=== PATIENT | male | born 1980 | race American Indian/Alaskan Native ===

== ENCOUNTER 2017-02-10 12:23 | Emergency (ER) | payer OTHER ==
[2017-02-10 12:57] LABS: Basophils % (Auto) 0.5 % (0.0-1.8); Eosinophils % (Auto) 2.1 % (0.0-4.3); Hematocrit 53.3 % (35.5-45.6); Hemoglobin 17.9 gm/dl (11.8-15.2); Mean Corpuscular HGB Conc 34 % (32-34); Mean Corpuscular Hemoglobin 31 pg (28-32); Mean Corpuscular Volume 93 fl (84-94); Platelet Count 170 K/mm3 (140-440); Red Blood Count 5.71 M/mm3 (3.65-5.03); Red Cell Distribution Width 13.8 % (13.2-15.2); White Blood Count 10.1 K/mm3 (4.5-11.0)
[2017-02-10 13:13] LABS: Bilirubin,Urine NEG (Negative); Blood,Urine MOD (Negative); Ketones,Urine NEG (Negative); Leukocyte Esterase,Urine NEG (Negative); Nitrite,Urine NEG (Negative); Protein,Urine <15 mg/dL mg/dL (Negative); Urobilinogen,Urine < 2.0 mg/dL (<2.0)
[2017-02-10 13:18] LABS: Alanine Aminotransferase 14 units/L (7-56); Albumin/Globulin Ratio 1.3 %; Alkaline Phosphatase 80 units/L (35-129); Anion Gap 14 mmol/L; Blood Urea Nitrogen 14 mg/dL (9-20); Calcium 8.6 mg/dL (8.4-10.2); Carbon Dioxide 25 mmol/L (22-30); Chloride 103.2 mmol/L (98-107); Glucose 96 mg/dL (75-100); Lipase 28 units/L (13-60); Potassium 4.2 mmol/L (3.6-5.0); Sodium 138 mmol/L (137-145); Total Protein 7.2 g/dL (6.3-8.2)
--- NOTE | 2017-02-10 16:04 | Cat Scan Report ---
FINAL REPORT PROCEDURE: CT ABDOMEN PELVIS WO CON TECHNIQUE: Computerized axial tomography of the abdomen and pelvis was performed without intravenous contrast. This study is performed without intravascular contrast material and its sensitivity for abdominal and pelvic pathology, including neoplasms, inflammation, abscess, free fluid, thrombosis, arterial dissection and infarction, is reduced compared with a contrast enhanced study. HISTORY: right side pain COMPARISON: No prior studies are available for comparison. FINDINGS: CHF and likely mild pulmonary edema is seen. Liver and spleen appear normal. Gallbladder is mildly distended without obvious abnormality. No biliary ductal dilation is seen. Pancreas appears normal. The adrenal glands and abdominal aorta are normal in size. No renal abnormality is seen. Normal appendix is seen. Bladder appears normal. There is a small left inguinal hernia containing fat. No free pelvic fluid is seen. There is no evidence of bowel obstruction. No constipation or evidence of colitis is seen. Possible changes of mild enteritis are seen. IMPRESSION: There is suspicion for mild changes of enteritis. CHF and mild pulmonary edema are seen.
[2017-02-10 17:10] VITALS: BP 125/75
--- NOTE | 2017-02-10 17:57 | XRay Report ---
FINAL REPORT PROCEDURE: XR CHEST ROUTINE 2V TECHNIQUE: Two views of the chest are obtained. HISTORY: ? of chf on ct abd/pelvis COMPARISON: Abdomen CT from same day FINDINGS: Heart size is improved since prior study. No pulmonary venous congestion is seen. There may be mild increased interstitial densities as can be seen with pulmonary edema. No focal infiltrate or pneumothorax is seen. No pleural effusion is seen. IMPRESSION: Appearance of the chest is improved there are mild increased interstitial densities in the lungs that could be due to mild pulmonary edema.
--- NOTE | 2017-02-10 18:19 | Emergency Department Report ---
ED Abdominal Pain HPI - General Chief Complaint: Abdominal Pain Stated Complaint: BLOOD IN URINE/RT SIDE PAIN Time Seen by Provider: 02/10/17 15:09 Source: patient Mode of arrival: Ambulatory Limitations: No Limitations - History of Present Illness Initial Comments: 36-year-old male inthe past medical history presents complaining of right-sided abdominal pain intermittent times one year. Pain is worsening. Pain is sharp and twisting in nature. Rated moderate in intensity. No aggravating or alleviating factors reported. Patient denies associated symptoms including nausea, vomiting, diarrhea, hematuria, melena, hematochezia, or, back pain, or testicular pain. 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 Denies previous abdominal surgeries. Severity scale (0 -10): 1 - Related Data Previous Rx's Medication Instructions Recorded Last Taken Type traMADol [Ultram 50 MG tab] 50 mg PO Q6HR PRN #20 tablet 02/10/17 Unknown Rx Allergies Allergy/AdvReac Type Severity Reaction Status Date / Time No Known Allergies Allergy Unverified 02/10/17 12:26 ED Review of Systems ROS: Stated complaint: BLOOD IN URINE/RT SIDE PAIN Other details as noted in HPI Comment: All other systems reviewed and negative Other: Constitutional: No fevers chills or weight loss Eyes: No eye pain visual changes or discharge ENT: No ear pain or throat pain Neck: Denies pain Respiratory: Denies cough wheezing shortness of breath Cardiovascular: Denies chest pain, palpitations, syncope GI: As per HPI : Denies dysuria, urinary frequency, or urgency Musculoskeletal: Denies back pain Skin: Denies rash, lesions, erythema Neurologic: Denies headache, numbness, weakness Psychiatric: Denies suicidal ideation, hallucinations ED Past Medical Hx - Past Medical History Previous Medical History?: No - Surgical History Past Surgical History?: No - Social History Smoking Status: Light Tobacco Smoker Substance Use Type: Alcohol - Medications Home Medications: Home Medications Medication Instructions Recorded Confirmed Last Taken Type traMADol [Ultram 50 MG tab] 50 mg PO Q6HR PRN #20 tablet 02/10/17 Unknown Rx ED Physical Exam - General Limitations: No Limitations - Other Other exam information: General: No limitations, patient is alert in no acute distress Head exam: Atraumatic, normocephalic Eyes exam: Normal appearance, nonicteric sclera ENT: Moist mucous membrane, normal oropharynx Neck exam: Normal inspection, full range of motion, no meningismus nontender Respiratory exam: Clear to auscultation bilateral, no wheezes, rales, crackles Cardiovascular: Normal rate and rhythm, normal heart sounds Abdomen: Soft, nondistended, and nontender, with normal bowel sounds, no rebound, or guarding Extremity: Full range of motion normal inspection no deformity Back: Normal Inspection, full range of motion, no tenderness Neurologic: Alert, oriented x3, cranial nerves intact, no motor or sensory deficit Psychiatric: normal affect, normal mood Skin: Warm, dry, intact ED Course Vital Signs 02/10/17 02/10/17 12:28 17:08 Temperature 98.8 F Pulse Rate 95 H 70 Respiratory 17 18 Rate Blood Pressure 151/109 Blood Pressure 125/75 [Left] O2 Sat by Pulse 99 100 Oximetry - Reevaluation(s) Reevaluation #1: 02/10/17 18:19 Patient declined offer for pain medication no discomfort noted in the ED. BP improved spontaneously him. The triage ED Medical Decision Making - Lab Data Result diagrams: 02/10/17 12:48 02/10/17 12:48 Lab Results 02/10/17 02/10/17 02/10/17 Range/Units 12:48 12:48 13:03 WBC 10.1 (4.5-11.0) K/mm3 RBC 5.71 H (3.65-5.03) M/mm3 Hgb 17.9 H (11.8-15.2) gm/dl Hct 53.3 H (35.5-45.6) % MCV 93 (84-94) fl MCH 31 (28-32) pg MCHC 34 (32-34) % RDW 13.8 (13.2-15.2) % Plt Count 170 (140-440) K/mm3 Lymph % (Auto) 20.4 (13.4-35.0) % Clay % (Auto) 9.2 H (0.0-7.3) % Eos % (Auto) 2.1 (0.0-4.3) % Baso % (Auto) 0.5 (0.0-1.8) % Lymph # 2.1 (1.2-5.4) K/mm3 Clay # 0.9 H (0.0-0.8) K/mm3 Eos # 0.2 (0.0-0.4) K/mm3 Baso # 0.0 (0.0-0.1) K/mm3 Seg Neutrophils % 67.8 (40.0-70.0) % Seg Neutrophils # 6.8 (1.8-7.7) K/mm3 Sodium 138 (137-145) mmol/L Potassium 4.2 (3.6-5.0) mmol/L Chloride 103.2 (98-107) mmol/L Carbon Dioxide 25 (22-30) mmol/L Anion Gap 14 mmol/L BUN 14 (9-20) mg/dL Creatinine 1.0 (0.8-1.5) mg/dL Estimated GFR > 60 ml/min BUN/Creatinine Ratio 14.00 % Glucose 96 (75-100) mg/dL Calcium 8.6 (8.4-10.2) mg/dL Total Bilirubin 0.30 (0.1-1.2) mg/dL AST 16 (5-40) units/L ALT 14 (7-56) units/L Alkaline Phosphatase 80 (35-129) units/L NT-Pro-B Natriuret Pep (0-450) pg/mL Total Protein 7.2 (6.3-8.2) g/dL Albumin 4.0 (3.9-5) g/dL Albumin/Globulin Ratio 1.3 % Lipase 28 (13-60) units/L Urine Color Yellow (Yellow) Urine Turbidity Clear (Clear) Urine pH 5.0 (5.0-7.0) Ur Specific [place] 1.019 (1.003-1.030) Urine Protein <15 mg/dl (Negative) mg/dL Urine Glucose (UA) Neg (Negative) mg/dL Urine Ketones Neg (Negative) mg/dL Urine Blood Mod (Negative) Urine Nitrite Neg (Negative) Urine Bilirubin Neg (Negative) Urine Urobilinogen < 2.0 (<2.0) mg/dL Ur Leukocyte Esterase Neg (Negative) Urine WBC (Auto) 1.0 (0.0-6.0) /HPF Urine RBC (Auto) 5.0 (0.0-6.0) /HPF 02/10/17 Range/Units 17:05 WBC (4.5-11.0) K/mm3 RBC (3.65-5.03) M/mm3 Hgb (11.8-15.2) gm/dl Hct (35.5-45.6) % MCV (84-94) fl MCH (28-32) pg MCHC (32-34) % RDW (13.2-15.2) % Plt Count (140-440) K/mm3 Lymph % (Auto) (13.4-35.0) % Clay % (Auto) (0.0-7.3) % Eos % (Auto) (0.0-4.3) % Baso % (Auto) (0.0-1.8) % Lymph # (1.2-5.4) K/mm3 [place] # (0.0-0.8) K/mm3 Eos # (0.0-0.4) K/mm3 Baso # (0.0-0.1) K/mm3 Seg Neutrophils % (40.0-70.0) % Seg Neutrophils # (1.8-7.7) K/mm3 Sodium (137-145) mmol/L Potassium (3.6-5.0) mmol/L Chloride (98-107) mmol/L Carbon Dioxide (22-30) mmol/L Anion Gap mmol/L BUN (9-20) mg/dL Creatinine (0.8-1.5) mg/dL Estimated GFR ml/min BUN/Creatinine Ratio % Glucose (75-100) mg/dL Calcium (8.4-10.2) mg/dL Total Bilirubin (0.1-1.2) mg/dL AST (5-40) units/L ALT (7-56) units/L Alkaline Phosphatase (35-129) units/L NT-Pro-B Natriuret Pep 9.71 (0-450) pg/mL Total Protein (6.3-8.2) g/dL Albumin (3.9-5) g/dL Albumin/Globulin Ratio % Lipase (13-60) units/L Urine Color (Yellow) Urine Turbidity (Clear) Urine pH (5.0-7.0) Ur Specific [place] (1.003-1.030) Urine Protein (Negative) mg/dL Urine Glucose (UA) (Negative) mg/dL Urine Ketones (Negative) mg/dL Urine Blood (Negative) Urine Nitrite (Negative) Urine Bilirubin (Negative) Urine Urobilinogen (<2.0) mg/dL Ur Leukocyte Esterase (Negative) Urine WBC (Auto) (0.0-6.0) /HPF Urine RBC (Auto) (0.0-6.0) /HPF - Radiology Data Radiology results: report reviewed CT abdomen and pelvis noncontrast: Suspicion for mild tenderness of enteritis. CHF, pulmonary edema are seen. Gallbladder mildly distended without obvious abnormality in no illness or a ductal dilatation is seen. Pancreas normal. Chest x-ray: Appearance the chest is improved there are mild increased interstitial densities in the lungs that could be due to mild pulmonary edema - Medical Decision Making CT does not show any significant abnormality to explain right-sided abdominal pain. CT and chest x-ray were read as possible pulmonary edema however, patient has no complaints of shortness of breath, orthopnea, PND, leg edema and has a normal BNP. I'm unsure of the significance of these incidental chest and CT findings in outpatient referral will be provided since patient is asymptomatic. Medications for pain will be prescribed and outpatient follow-up will be encouraged. - Differential Diagnosis biliary colic, renal colic, UTI, Critical Care Time: No Critical care attestation.: If time is entered above; I have spent that time in minutes in the direct care of this critically ill patient, excluding procedure time. ED Disposition Clinical Impression: Abdominal pain, chronic, right upper quadrant, Abnormal CXR Disposition: - TO HOME OR SELFCARE Is pt being admited?: No Does the pt Need Aspirin: No Condition: Stable Instructions: Abdominal Pain (ED) Additional Instructions: Follow-up with the primary care doctors/clinic and the GI doctor provided. Return if symptoms worsen. A chest x-ray has some increase markings that may need further outpatient evaluation. Follow-up with the senior cyber security analyst provided as well. Prescriptions: traMADol [Ultram 50 MG tab] 50 mg PO Q6HR PRN #20 tablet PRN Reason: Pain Referrals: [facility] [Provider Group] - 3-5 Days (Primary care clinic) CIERRA MALONEY MD [Staff Physician] - 3-5 Days (GI doctor ) ZEKE DICKENS MD [Staff Physician] - 3-5 Days (Lung specialist ) JAYESH REYNAGA MD [Staff Physician] - 3-5 Days (Primary care doctor ) Time of Disposition: 18:48
== END 2017-02-10 18:00 | disposition home or self-care (01) ==
LOC: ED 12:23
DX: R10.11 Right upper quadrant pain (principal); G89.29 Other chronic pain; R93.8 Abnormal findings on diagnostic imaging of other specified body structures; F17.200 Nicotine dependence, unspecified, uncomplicated
CPT/HCPCS: 36415; 71020; 74176; 80053; 81001; 83690; 83880; 85025; 99284

== ENCOUNTER 2017-06-17 11:44 | Emergency (ER) | payer SELFPAY ==
[2017-06-17 12:07] VITALS: BP 178/117
--- NOTE | 2017-06-17 12:58 | Emergency Department Report ---
Chief Complaint: Abdominal Pain Stated Complaint: RT ABD PAIN Time Seen by Provider: 06/17/17 12:45 - HPI History of Present Illness: Patient reports that he is having right upper quadrant pain 2 days. It was reported that he has right lower quadrant but he said it's in his right upper quadrant. Positive vomiting. Patient reports that he feels like he has chills. He said the pain comes and goes and is sharp. Pain is 10 out of 10 when it there. Denies any radiation of pain. Denies any history of liver disease or gallbladder disease. Denies any headache, dizziness, shortness of breath or chest pain. Blood pressure is 178/117 and he said he's never had high blood pressure he thinks is because he is having pain. Denies any diarrhea. Denies any urinary burning frequency or urgency. - ROS Review of Systems: All systems are negative unless stated in HPI above - Exam Vital Signs: Vital Signs 06/17/17 12:04 Temperature 98.9 F Pulse Rate 75 Respiratory 16 Rate Blood Pressure 178/117 O2 Sat by Pulse 99 Oximetry Physical Exam: Gen.: This is a 37-year-old male well-nourished well-developed and nontoxic in appearance. ABD: No peritoneal signs, no hernia. Positive bowel sounds in all quadrants and abdomen is nontender to palpate. MSE screening note: Focused history and physical exam performed. Due to findings the following was ordered: ED Medical Decision Making - Lab Data Result diagrams: 06/17/17 12:42 - Medical Decision Making MDM: Patient screened by provider in triage area. Appropriate protocol initiated and patient to be seen in main ED by ED Disposition for MSE Condition: Stable
[2017-06-17 13:01] LABS: Basophils % (Auto) 0.5 % (0.0-1.8); Eosinophils % (Auto) 2.2 % (0.0-4.3); Hematocrit 53.1 % (35.5-45.6); Hemoglobin 18.1 gm/dl (11.8-15.2); Mean Corpuscular HGB Conc 34 % (32-34); Mean Corpuscular Hemoglobin 32 pg (28-32); Mean Corpuscular Volume 94 fl (84-94); Platelet Count 171 K/mm3 (140-440); Red Blood Count 5.68 M/mm3 (3.65-5.03); Red Cell Distribution Width 14.2 % (13.2-15.2); White Blood Count 10.1 K/mm3 (4.5-11.0)
[2017-06-17 13:17] LABS: Alanine Aminotransferase 12 units/L (7-56); Albumin 3.9 g/dL (3.9-5); Albumin/Globulin Ratio 1.2 %; Alkaline Phosphatase 83 units/L (35-129); Anion Gap 17 mmol/L; BUN/Creatinine Ratio 11; Blood Urea Nitrogen 10 mg/dL (9-20); Calcium 8.9 mg/dL (8.4-10.2); Carbon Dioxide 25 mmol/L (22-30); Chloride 102.8 mmol/L (98-107); Glucose 89 mg/dL (75-100); Lipase 24 units/L (13-60); Potassium 4.4 mmol/L (3.6-5.0); Sodium 140 mmol/L (137-145); Total Protein 7.2 g/dL (6.3-8.2)
--- NOTE | 2017-06-17 14:00 | Ultrasound Report ---
ULTRASOUND ABDOMEN LIMITED INDICATION: Right upper quadrant pain. COMPARISON: 02/10/2017 CT. FINDINGS: Right upper quadrant ultrasound demonstrates unremarkable liver. No gallstones or pericholecystic fluid. Gallbladder wall thickness is 3 mm. Negative sonographic Olguin's sign. Common bile duct is 5 mm. Imaged pancreas, nonaneurysmal abdominal aorta and IVC appear within normal limits. Top normal/borderline right renal cortical echogenicity. Nonhydronephrotic, 10.8 x 4.2 x 5.4 cm right kidney with cortical thickness of 1.4 cm. CONCLUSION: No acute right upper quadrant sonographic abnormality with few other findings, as described. Please correlate. Thank you for the opportunity to participate in this patient's care.
[2017-06-17 18:33] LABS: Bilirubin,Urine NEG (Negative); Blood,Urine SM (Negative); Ketones,Urine NEG (Negative); Leukocyte Esterase,Urine NEG (Negative); Mucus,Urine FEW /HPF; Nitrite,Urine NEG (Negative); Protein,Urine <15 mg/dL mg/dL (Negative)
== END 2017-06-18 01:22 | disposition left against medical advice (07) ==
LOC: ED 11:44
DX: R10.9 Unspecified abdominal pain (principal); Z53.21 Procedure and treatment not carried out due to patient leaving prior to being seen by health care provider
CPT/HCPCS: 36415; 76705; 80053; 81001; 83690; 85025

== ENCOUNTER 2018-04-12 21:09 | Emergency (ER) | payer SELFPAY ==
[2018-04-12 22:21] LABS: Basophils # (Auto) 0.1 K/mm3 (0.0-0.1); Basophils % (Auto) 0.6 % (0.0-1.8); Eosinophils # (Auto) 0.4 K/mm3 (0.0-0.4); Eosinophils % (Auto) 3.2 % (0.0-4.3); Hematocrit 52.1 % (35.5-45.6); Hemoglobin 17.5 gm/dl (11.8-15.2); INR 0.91 (0.87-1.13); Lymphocytes # (Auto) 2.8 K/mm3 (1.2-5.4); Mean Corpuscular HGB Conc 34 % (32-34); Mean Corpuscular Hemoglobin 32 pg (28-32); Mean Corpuscular Volume 97 fl (84-94); Monocytes # (Auto) 1.2 K/mm3 (0.0-0.8); Monocytes % (Auto) 10.2 % (0.0-7.3); Partial Thromboplastin Time 35.4 Sec. (24.2-36.6); Platelet Count 186 K/mm3 (140-440); Red Blood Count 5.41 M/mm3 (3.65-5.03); Red Cell Distribution Width 14.2 % (13.2-15.2)
[2018-04-12 22:25] LABS: Alanine Aminotransferase 10 units/L (7-56); Albumin 4.4 g/dL (3.9-5); BUN/Creatinine Ratio 14; Blood Urea Nitrogen 15 mg/dL (9-20); Calcium 9.1 mg/dL (8.4-10.2); Hemolysis Index 69
[2018-04-13 02:07] VITALS: BP 155/99
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
[2018-04-13] MEDS ORDERED: ELIQUIS PO ONE (04:06)
== END 2018-04-13 04:48 | disposition home or self-care (01) ==
LOC: ED 21:09
DX: I82.501 Chronic embolism and thrombosis of unspecified deep veins of right lower extremity (principal); F17.200 Nicotine dependence, unspecified, uncomplicated; Z91.14 Patient's other noncompliance with medication regimen
CPT/HCPCS: 36415; 80053; 85025; 85379; 85610; 85730; 99283